=== PATIENT | male | born 1990 | race Caucasian/White ===

== ENCOUNTER → 2017-07-04 | Outpatient (CLI) | payer OTHER ==
--- NOTE | 2017-07-04 13:46 | REP ---
THORACIC SPINE: AP and lateral views of the thoracic spine are performed with four total views obtained. There is no evidence of compression fracture or malalignment. There is normal thoracic kyphosis. Disc spaces appear relatively well preserved. The posterior elements are intact. IMPRESSION: No evidence of compression fracture or significant arthritic change. Signed by Theron Mcdermott MD 07/04/2017 04:46 P
== END ==
LOC: M WUC 12:34
PROVIDERS: ATTEND Physician Assistant
DX: S23.3XXA Sprain of ligaments of thoracic spine, initial encounter (principal); X58.XXXA Exposure to other specified factors, initial encounter; Y93.9 Activity, unspecified; Y92.9 Unspecified place or not applicable; Y99.8 Other external cause status

== ENCOUNTER 2019-07-29 06:08 | Emergency (ER) | payer OTHER, SELFPAY ==
[~2019-07-29] VITALS: Ht 175.3 cm; Wt 127.3 kg
[2019-07-29] MEDS ORDERED: [UNRECOGNIZED DRUG - OTHER] (06:14)
[2019-07-29] MEDS ORDERED: CLIN150C14 PO (06:23)
[2019-07-29] MEDS ORDERED: IBUP80TA PO (06:23)
[2019-07-29] MEDS ORDERED: ACET-839 PO (06:23)
[2019-07-29] MEDS ORDERED: KETOROLAC 60 MG/2 ML VIAL (J1885) IM ONE (06:45)
[2019-07-29 07:01] LABS: BASO # 0.1 10^3/uL (0.0-0.2); BASO % 0.5 % (0.0-1.0); EOS # 0.1 10^3/uL (0.0-0.5); EOS % 1.2 % (0.0-3.0); HEMATOCRIT 45.3 % (42.0-52.0); HEMOGLOBIN 15.5 g/dl (13.5-17.5); LYMPH % 20.2 % (24.0-44.0); MEAN CORPUSCULAR HEMOGLOBIN 29.9 pg (27.0-33.0); MEAN CORPUSCULAR HGB CONC 34.2 g/dl (32.0-36.5); MEAN CORPUSCULAR VOLUME 87.5 fl (80.0-96.0); MONO # 0.7 10^3/uL (0.0-0.8); MONO % 6.9 % (0.0-5.0); NEUTROPHILS # 6.9 10^3/uL (1.5-8.5); NEUTROPHILS % 70.9 % (36.0-66.0); PLATELET COUNT, AUTOMATED 376 10^3/uL (150-450); RED BLOOD COUNT 5.18 10^6/uL (4.30-6.10); WHITE BLOOD COUNT 9.8 10^3/uL (4.0-10.0)
[2019-07-29] MEDS ORDERED: PENI500T PO (07:40)
[2019-07-29] MEDS ORDERED: KETO10TAB PO (07:40)
[2019-07-29 07:57] VITALS: BP 138/92
== END 2019-07-29 07:59 | disposition home or self-care (01) ==
LOC: M ED 06:08
DX: K08.89 Other specified disorders of teeth and supporting structures (principal); K04.7 Periapical abscess without sinus
CPT/HCPCS: 80047; 85025; 96372; 99283; J1885

== ENCOUNTER 2020-09-18 18:46 | Emergency (ER) | payer OTHER, SELFPAY ==
[~2020-09-18] VITALS: Ht 175.3 cm; Wt 134.8 kg
[~2020-09-18 18:46] MED LIST: ACET-839 PO; CLIN150C14 PO; IBUP80TA PO; KETO10TAB PO; PENI500T PO; [UNRECOGNIZED DRUG - OTHER]
[2020-09-18] MEDS ORDERED: NAPR220C14 PO (18:52)
[2020-09-18] MEDS ORDERED: KETOROLAC 60MG 2ML VIAL IM ONE (19:30)
[2020-09-18] MEDS ORDERED: diazePAM 10 MG TAB PO ONE (19:30)
[2020-09-18] MEDS ORDERED: LIDOCAINE 5% (LIDODERM) PATCH TD ONE (19:30)
[2020-09-18] MEDS ORDERED: ROBA750T4 PO (19:57)
[2020-09-18] MEDS ORDERED: ASPE4PAD TOP (19:57)
[2020-09-18] MEDS ORDERED: NAPR-837 PO (19:57)
[2020-09-18 20:11] VITALS: BP 134/82
[2020-09-18] MEDS ORDERED: **NOTE PATIENT COMMENT** MISC XX SCH (21:00)
== END 2020-09-18 20:10 | disposition home or self-care (01) ==
LOC: M ED 18:46
DX: S33.5XXA Sprain of ligaments of lumbar spine, initial encounter (principal); X50.0XXA Overexertion from strenuous movement or load, initial encounter; Y92.89 Other specified places as the place of occurrence of the external cause; Y93.9 Activity, unspecified; Y99.0 Civilian activity done for income or pay
CPT/HCPCS: 99283; J1885

== ENCOUNTER 2021-08-27 12:11 | Emergency (ER) | payer OTHER, SELFPAY ==
[~2021-08-27] VITALS: Ht 175.3 cm; Wt 126.8 kg
[~2021-08-27 12:11] MED LIST changes: +ASPE4PAD TOP; -CLIN150C14 PO; +CLIN150C17 PO; +NAPR-837 PO; +NAPR220C14 PO; +ROBA750T4 PO
[2021-08-27 15:49] LABS: RSV AMPLIFICATION NEGATIVE (NEGATIVE)
[2021-08-27 16:06] VITALS: BP 143/97
== END 2021-08-27 16:45 | disposition home or self-care (01) ==
LOC: M ED 12:11
DX: U07.1 COVID-19 (principal); R50.9 Fever, unspecified; R05.9 Cough, unspecified; R06.02 Shortness of breath; Z79.899 Other long term (current) drug therapy

== ENCOUNTER 2021-09-02 09:51 | Inpatient (IN) | payer OTHER, SELFPAY ==
[~2021-09-02] VITALS: Ht 170.2 cm; Wt 124.5 kg
--- OUTSIDE RECORDS SUMMARY | 2021-09-02 10:03 | CCD ---
Author Author [facility] Organization [facility] Address Unknown Phone Unavailable Support Name Relationship Address Phone Parvin Will Sun Next Of Kin Unknown Unavailable TOMEKA DAVIS Next Of Kin [address] [address] Alyssa Medina DDS Next Of Kin [address] [place], [place] [id number] [employer] Next Of Kin [address] [place] [address] ELFEGO MG Next Of Kin [address] [place] [address] TOMEKA DAVIS ECON [address] [address] Unavailable Re-disclosure Warning The records that you are about to access may contain information from federally-assisted alcohol or drug abuse programs. If such information is present, then the following federally mandated warning applies: This information has been disclosed to you from records protected by federal confidentiality rules (42 CFR part 2). The federal rules prohibit you from making any further disclosure of this information unless further disclosure is expressly permitted by the written consent of the person to whom it pertains or as otherwise permitted by 42 CFR part 2. A general authorization for the release of medical or other information is NOT sufficient for this purpose. The Federal rules restrict any use of the information to criminally investigate or prosecute any alcohol or drug abuse patient.The records that you are about to access may contain highly sensitive health information, the redisclosure of which is protected by Article 27-F of the [facility] Public Health law. If you continue you may have access to information: Regarding HIV / AIDS; Provided by facilities licensed or operated by the [facility] Office of Mental Health; or Provided by the [facility] Office for People With Developmental Disabilities. If such information is present, then the following [facility] mandated warning applies: This information has been disclosed to you from confidential records which are protected by state law. State law prohibits you from making any further disclosure of this information without the specific written consent of the person to whom it pertains, or as otherwise permitted by law. Any unauthorized further disclosure in violation of state law may result in a fine or intermediate sentence or both. A general authorization for the release of medical or other information is NOT sufficient authorization for further disc losure. Family History Family Member Name Family Member Gender Family Member Status Date o f Status Description Data Source(s) Unknown Unknown Problem MEDENT ([facility]) Encounters Encounter Providers Location Date Indications Data Source(s ) TeleMedicine Phone E/M by Esa 5-10 Min [address] [place] [address] 08/29/2021 12:00:00 AM EDT eCW1 ([facility]) Medications No Information Insurance Providers Payer name Policy type / Coverage type Policy ID Covered constitution party ID Covered constitution party's relationship to cartagena Policy [place] Plan Information [employer] Compensation [id number] Self [id number] Sliding Fee Scale P [id number] S [id number] [facility] [id number] SP [id number] [employer] [id number] SP [id number] Sliding Fee Scale P [id number] S [id number] Self Pay P none S none [facility] [id number] SP [id number] Self Pay P UNAVAILABLE S UNAVAILA BLE [employer] [id number] SP [id number] [employer] O [id number] O [id number] O UNAVAILABLE UNA[employer]ILA BLE [employer] O [id number] O [id number] [facility] Health Maintenance Organization [place] [id number] Self [id number] [facility] Health Maintenance Organization [place] [id number] Self [facility] [id number] SP [id number] SELF PAY UNAVAILABLE SP UNAVAILA BLE X CHANGING [id number] SP [id number] [employer] [id number] SP [id number] [employer] CLAIMS [id number] SP [id number] OTHER1 OTHER WORKERS COMPENSATION [id number] SP [id number] SELF PAY ONLY [id number] SP [id number] Problems, Conditions, and Diagnoses No Information Surgeries/Procedures No Information Results ID Date Data Source [id number] 08/27/2021 02:54:00 PM EDT [facility] Name Value Range Interpretation Code Description Data Nan rce(s) Supporting Document(s) SARS coronavirus 2 RNA [Presence] in Res piratory specimen by JONN with probe detection POSITIVE [facility] This lab was ordered by [facility] a nd reported by [facility]. Procedure Social History No Information
--- OUTSIDE RECORDS SUMMARY | 2021-09-02 10:03 | CCD ---
Author Author [facility] Organization [facility] Address Unknown Phone Unavailable Care Team Providers Care Industrial Engineering Analyst Name Role Phone Jaya Nolasco Unavailable PROBLEMS No Information ALLERGIES No Information ENCOUNTERS from 1990 to 2021-08-31 Encounter Location Date Provider Diagnosis [facility] Luis JONES [phone] [place] [address] Aug, Jaya Nolasco COVID-19 U07.1 IMMUNIZATIONS No Information SOCIAL HISTORY Sex Assigned At : Social History Observation Description Sex Assigned At Unknown REASON FOR REFERRAL No Information VITAL SIGNS No information MEDICATIONS No Information PROCEDURES No Information RESULTS No Results REASON FOR VISIT COVID F/U; telemedicine visit Goals Section No Information Health Concerns No Information MEDICAL EQUIPMENT No Information MENTAL STATUS No Information FUNCTIONAL STATUS No Information ASSESSMENTS Encounter Date Diagnosis Assessment Notes Treatment Notes Treatm ent Clinical Notes Aug, COVID-19 (ICD-10 - U07.1) Symptom onset: 6 days. Positive test: 3 days You have been infected with coronavirus commonly known as Covid-19. Unfortunately, antibiotics do not help with viral infections. They are usually benign and self-limited infections, so treatment is based on symptomatic relief. Rest and drink clear fluids throughout the day. You may use humidification and saline irrigation to help with the congestion. You may also take motrin or tylenol as needed for pain or fever. You are considered to be contagious at this time. Please quarantine at home as directed. You likely will be contacted by public health who give you further direction viral infections sometimes may last 10-14 days before resolving completely. However, if symptoms are worsening especially if you develop chest pain or difficulty breathing; please be reevaluated as soon as possible. If you do not have any cardiac or blood pressure problems you may also consider using qnvm-snr-rwqwfce decongestant (i.e. Sudafed) medication as needed. Please continue to monitor home oxygen levels. If they are consistently below 90% or if you develop worsening shortness of breath and/or chest pain, please go directly to the emergency room for further evaluation and management. PLAN OF TREATMENT Treatment Notes Assessment Notes Clinical Notes COVID-19 Symptom onset: 6 days. Posi tive test: 3 daysYou have been infected with coronavirus commonly known as Covid-19. Unfortunately, antibiotics do not help with viral infections. They are usually benign and self-limited infections, so treatment is based on symptomatic relief. Rest and drink clear fluids throughout the day. You may use humidification and saline irrigation to help with the congestion. You may also take motrin or tylenol as needed for pain or fever. You are considered to be contagious at this time. Please quarantine at home as directed. You likely will be contacted by public health who give you further direction viral infections sometimes may last 10-14 days before resolving completely. However, if symptoms are worsening especially if you develop chest pain or difficulty breathing; please be reevaluated as soon as possible. If you do not have any cardiac or blood pressure problems you may also consider using vocw-pnc-ytgpdgz decongestant (i.e. Sudafed) medication as needed.Please continue to monitor home oxygen levels. If they are consistently below 90% or if you develop worsening shortness of breath and/or chest pain, please go directly to the emergency room for further evaluation and management. Next Appt Details Patient is low risk and doing well. Fol low-up as needed Reason:
--- OUTSIDE RECORDS SUMMARY | 2021-09-02 11:31 | CCD ---
Author Author [facility] Organization [facility] Address Unknown Phone Unavailable Support Name Relationship Address Phone Parvin Will Sun Next Of Kin Unknown Unavailable TOMEKA DAVIS Next Of Kin [address] [address] Alyssa Medina DDS Next Of Kin [address] [place], [place] [id number] [employer] Next Of Kin [address] [place] [address] ELFEGO MG Next Of Kin [address] [place] [address] TOMEKA DAVIS ECON [address] [address] Unavailable Re-disclosure Warning The records that you [...] is protected by Article 27-F of the [facility] Public Health law. If you continue you may have access to information: Regarding HIV / AIDS; Provided by facilities licensed or operated by the [facility] Office of Mental Health; or Provided by the [facility] Office for People With Developmental Disabilities. If such information is present, then the following [facility] mandated warning applies: This information has [...] law may result in a fine or group home sentence or both. A general authorization for [...] Phone E/M by Esa 5-10 Min [address] [place] [address] 08/29/2021 12:00:00 AM EDT eCW1 ([facility]) Medications No Information Insurance Providers Payer name Policy type / Coverage type Policy ID Covered democrat ID Covered democrat's relationship to cartagena Policy [place] Plan Information [employer] Compensation [id number] Self [id number] Sliding Fee Scale P [id number] S [id number] [facility] [id number] SP [id number] [employer] [id number] SP [id number] Sliding Fee Scale P [id number] S [id number] Self Pay P none S none [facility] [id number] SP [id number] Self Pay P UNAVAILABLE S UNAVAILA BLE [employer] [id number] SP [id number] [employer] O [id number] O [id number] O UNAVAILABLE UNAVAILA BLE [employer] O [id number] O [id number] [facility] Health Maintenance Organization ([facility] [id number] Self [id number] [facility] Health Maintenance Organization ([facility] [id number] Self [facility] [id number] SP [id number] SELF PAY UNAVAILABLE SP UNAVAILA BLE X CHANGING [id number] SP [id number] [employer] [id number] SP [id number] [employer] CLAIMS [id number] SP [id number] SELF PAY ONLY [id number] SP [id number] OTHER WORKERS COMPENSATION [id number] SP [id number] Problems, Conditions, and Diagnoses No Information Surgeries/Procedures No Information Results ID Date Data Source [id number] 08/27/2021 02:54:00 PM EDT [facility] Name Value Range Interpretation Code Description Data Nan rce(s) Supporting Document(s) SARS coronavirus 2 RNA [Presence] in Res piratory specimen by JONN with probe detection POSITIVE [facility] This lab was ordered by [facility] a nd reported by [facility]. Procedure Social History No Information
[2021-09-02] MEDS ORDERED: NS 1,000 ML IV ONE (11:40)
[2021-09-02] MEDS ORDERED: diphenhydrAMINE 50MG/ML VIAL (J1200) IV ONE (12:00)
[2021-09-02] MEDS ORDERED: guaiFENesin DM LIQ 10ML UD PO ONE (12:00)
[2021-09-02] MEDS ORDERED: ACETAMINOPHEN 325 MG TAB PO ONE (12:00)
[2021-09-02 12:18] LABS: BASO % 0.4 % (0.0-1.0); EOS % 0.4 % (0.0-3.0); HEMATOCRIT 43.5 % (42.0-52.0); HEMOGLOBIN 15.2 g/dl (13.5-17.5); LYMPH # 1.2 10^3/uL (1.5-5.0); LYMPH % 15.8 % (24.0-44.0); MEAN CORPUSCULAR HEMOGLOBIN 29.3 pg (27.0-33.0); MEAN CORPUSCULAR HGB CONC 34.9 g/dl (32.0-36.5); MONO # 0.4 10^3/uL (0.0-0.8); MONO % 5.7 % (2.0-8.0); NEUTROPHILS # 5.8 10^3/uL (1.5-8.5); NEUTROPHILS % 77.3 % (36.0-66.0); PLATELET COUNT, AUTOMATED 305 10^3/uL (150-450); RED BLOOD COUNT 5.18 10^6/uL (4.30-6.10); WHITE BLOOD COUNT 7.5 10^3/uL (4.0-10.0)
--- NOTE | 2021-09-02 12:29 | REP ---
INDICATION: Coronavirus workup COMPARISON: 10/15/2015 TECHNIQUE: Portable AP view of the chest FINDINGS: Mediastinum and cardiac silhouette are normal. Moderate patchy bilateral opacities are consistent with COVID-19 pulmonary disease. No effusion. No pneumothorax. Skeletal structures are intact. IMPRESSION: Patchy bilateral opacities consistent with COVID-19 pulmonary disease. <Electronically signed by Vikram Temple > 09/02/21 [id number]
--- OUTSIDE RECORDS SUMMARY | 2021-09-02 12:42 | CCD ---
Author Author [facility] Organization [facility] Address Unknown Phone Unavailable Support Name Relationship Address Phone Parvin Will Sun Next Of Kin Unknown Unavailable TOMEKA DAVIS Next Of Kin [address] [address] Alyssa Medina DDS Next Of Kin [address] [place], [place] [phone] [employer] Next Of Kin [address] [place] [address] ELFEGO MG Next Of Kin [address] [address] [place] [address] TOMEKA DAVIS ECON [address] [address] Unavailable Re-disclosure Warning The records that you [...] is protected by Article 27-F of the [facility] Public Health law. If you continue you may have access to information: Regarding HIV / AIDS; Provided by facilities licensed or operated by the [facility] Office of Mental Health; or Provided by the [facility] Office for People With Developmental Disabilities. If such information is present, then the following [facility] mandated warning applies: This information has [...] law may result in a fine or detention sentence or both. A general authorization for [...] TeleMedicine Phone E/M by Esa 5-10 Min [address] [place] [address] 08/29/2021 12:00:00 AM EDT eCW1 ([facility]) Medications No Information Insurance Providers Payer name Policy type / Coverage type Policy ID Covered alliance party ID Covered alliance party's relationship to cartagena Policy [place] Plan Information [employer] [id number] Self [id number] Sliding Fee Scale P [id number] S [id number] [facility] [id number] SP [id number] [employer] [id number] SP [id number] Sliding Fee Scale P [id number] S [id number] Self Pay P none S none [facility] [id number] SP [id number] Self Pay P UNAVAILABLE S UNAVAILA BLE [employer] [id number] SP [id number] [employer] O [id number] O [id number] O UNAVAILABLE UNAVAILA BLE [employer] O [id number] O [id number] [facility] Health Maintenance Organization ([facility]) [id number] Self [id number] [facility] Health Maintenance Organization ([facility]) [id number] Self [facility] [id number] SP [id number] SELF PAY UNAVAILABLE SP UNAVAILA BLE X CHANGING [id number] SP [id number] [employer] [id number] SP [id number] [employer] CLAIMS [id number] SP [id number] SELF PAY ONLY [id number] SP [id number] OTHER WORKERS COMPENSATION [id number] SP [id number] Problems, Conditions, and Diagnoses No Information Surgeries/Procedures No Information Results ID Date Data Source [id number] 08/27/2021 02:54:00 PM EDT [facility] Name Value Range Interpretation Code Description Data Nan rce(s) Supporting Document(s) SARS coronavirus 2 RNA [Presence] in Res piratory specimen by JONN with probe detection POSITIVE [facility] This lab was ordered by [facility] a nd reported by [facility]. Procedure Social History No Information
[2021-09-02 12:44] LABS: ALBUMIN 3.4 GM/DL (3.2-5.2); ALT/SGPT 134 U/L (12-78); BILIRUBIN,TOTAL 0.5 MG/DL (0.2-1.0); BLOOD UREA NITROGEN 7 MG/DL (7-18); CALCIUM LEVEL 8.3 MG/DL (8.5-10.1); CARBON DIOXIDE LEVEL 25 MEQ/L (21-32); CHLORIDE LEVEL 99 MEQ/L (98-107); CK-MB VALUE MASS < 1.0 NG/ML (<3.6); CPK CREATINE PHOSPHOKINASE 111 U/L (39-308); CREATININE FOR GFR 0.82 MG/DL (0.70-1.30); FERRITIN 898 NG/ML (26-388); GLOMERULAR FILTRATION RATE > 60.0 (>60); GLUCOSE, FASTING 258 MG/DL (70-100); LDH LACTATE DEHYDROGENASE 410 U/L (87-241); MAGNESIUM LEVEL 1.7 MG/DL (1.8-2.4); POTASSIUM SERUM 3.8 MEQ/L (3.5-5.1); SODIUM LEVEL 132 MEQ/L (136-145); TOTAL PROTEIN 7.5 GM/DL (6.4-8.2); TROPONIN I < 0.02 NG/ML (< 0.10)
[2021-09-02] MEDS ORDERED: HOME MED LIST COMPLETE! XX SCH (12:45)
[2021-09-02 12:54] LABS: ABG BASE EXCESS -1.1 (-2.0-2.0); ABG HCO3 21.2 MEQ/L (22.0-26.0); ABG O2 SATURATION 93.6 % (95.0-99.0); ABG PARTIAL PRESSURE CO2 29.4 mmHg (35.0-45.0); ABG PARTIAL PRESSURE O2 65.7 mmHg (75.0-100.0); ABG STANDARD HCO3 23.4 MEQ/L (22.0-26.0); ABG TOTAL CO2 22.1 MEQ/L (22.0-29.0); ABG pH (ARTERIAL) 7.476 UNITS (7.350-7.450)
[2021-09-02 12:55] LABS: INR 0.99; PROTHROMBIN TIME 13.5 SECONDS (12.7-14.5)
[2021-09-02 12:56] LABS: PARTIAL THROMBOPLASTIN TIME 30.3 SECONDS (25.9-37.0)
[2021-09-02 12:59] LABS: D-DIMER QUANT 717.58 ng/ml (<500)
[2021-09-02] MEDS ORDERED: LEVALBUTEROL HFA 45MCG/ACT 15 GM INHALER INH ONE (13:15)
[2021-09-02] MEDS ORDERED: REMDESIVIR 200 MG in NS 250 ML IV ONE (15:00)
[2021-09-02] MEDS: dexameTHASONE 4 MG/ML 1ML VIAL (J1100 PER 1MG) IV SCH (15:11)
[2021-09-02] MEDS: ENOXAPARIN 40MG/0.4ML SYRINGE (J1650 PER 10MG) SC SCH (15:11)
[2021-09-02] MEDS: ASPIRIN 81MG ENTERIC TABLET PO SCH (15:11)
[2021-09-02] MEDS ORDERED: SODIUM CHLORIDE 0.9% INJ 10 ML SYR IV ONE (17:00)
--- NOTE | 2021-09-02 19:52 | ECGEPIP ---
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
[2021-09-02 21:10] VITALS: BP 141/80; O2SAT 95
[2021-09-03] VITALS (10 sets, daily range): BP systolic 130–139; BP diastolic 75–85; O2SAT 88–94
--- NOTE | 2021-09-03 06:43 | HPE ---
HISTORY AND PHYSICAL DATE OF ADMISSION: 09/02/2021 CHIEF COMPLAINT: Muscle aches, cough and shortness of breath. HISTORY OF PRESENT ILLNESS: This is a 31-year-old male with no past medical history who presents to the Emergency Room with 2-3 day history of worsening shortness of breath, the symptoms however started two Fridays ago when he found that he was coughing and having chills at night. He describes the cough as dry without sputum production. He had fevers of 101.9. He was exposed to a coworker who tested positive for Coronavirus. He then developed over the past 2-3 days a decrease in oral intake, nausea, vomiting, and generalized headache and decrease in appetite. Patient has no abdominal pain. Denies any changes in vision, palpitations, lightheadedness, chest pain or pressure. Despite taking Tylenol and Ibuprofen, patient continued to have on and off fevers and chills at night as well as nausea and vomiting with worsening shortness of breath. In the Emergency Room, the patient was found to be tachycardic, saturating 92% on room air but chest x-ray showed bilateral infiltrates and positive for Coronavirus. The Hospitalist was called to admit the patient for Coronavirus pneumonia. PAST MEDICAL HISTORY: None. PAST SURGICAL HISTORY: None. ALLERGIES: LETY inhibitors. HOME MEDICATIONS: 1. Tylenol. 2. Ibuprofen as needed. SOCIAL HISTORY: Previous smoker, a pack a day for about five to six years, quit about four years ago. No alcohol or recreational drug use. He works at a [employer]. FAMILY HISTORY: Mother with unknown medical problems. Father unknown. REVIEW OF SYSTEMS: Per HPI. A 12 point system is otherwise negative. PHYSICAL EXAMINATION: VITAL SIGNS: Temperature is 96.9, pulse is 113, sinus, respiratory is 24, blood pressure is 138/84, 92% on room air. GENERAL: Awake, alert and oriented to person, place and time, answering questions appropriately, in no distress, cyanosis, pallor or icterus. HEENT: Moist mucous membranes. No cervical lymphadenopathy, thyromegaly or jugular venous distention. No stridor. LUNGS: Diminished with fine crepitations bilaterally. HEART: S1 and S2, sinus tachycardia. ABDOMEN: Obese, soft, nontender and nondistended. EXTREMITIES: No cyanosis, clubbing or pitting edema. LABORATORY DATA: White count is 7.5, hemoglobin 15, hematocrit 43, platelet count is 305,000, 77% neutrophils, sodium is 132, potassium is 3.8, chloride is 99, bicarbonate is 25, BUN 7, creatinine is 0.8, glucose 258. Lactic acid of 1.7. Magnesium of 1.7. Calcium is 8.3. Ferritin is 898. T-bilirubin is 0.5. AST is 75, ALT is 134, alkaline phosphatase is 85. LDH is 410, CRP of 18. D-Dimer 717, fibrinogen 755, INR 0.99. Two sets of blood cultures are pending. Chest x-ray on 09/02/2021: Patchy bilateral opacities consistent with COVID-19 pulmonary disease. ASSESSMENT AND PLAN: This is a 31-year-old male with no past medical history aside from obesity with a BMI of 40.5% with a three day history of worsening shortness of breath but symptoms that started since two Peter's ago with a dry cough and chills at night. Patient has developed nausea and vomiting for the past two to three days, decreased oral intake prompting him to come to the ER. Chest x-ray showed bilateral patchy infiltrates consistent with Coronavirus infection. IMPRESSION: 1. Coronavirus pneumonia. Patient is currently not hypoxic, saturating well on room air at 92 to 94%. Patient will be treated with Remdesivir, IV Decadron, aspirin and Lovenox. Awaiting procalcitonin level. If greater than 0.5, patient will be given antibiotics for a secondary bacterial infection, supplemental oxygen to keep O2 saturations at 90% or higher. DISPOSITION: Two to three days. MTDD
[2021-09-03 07:13] LABS: HEMATOCRIT 41.7 % (42.0-52.0); HEMOGLOBIN 14.3 g/dl (13.5-17.5); MEAN CORPUSCULAR HEMOGLOBIN 29.3 pg (27.0-33.0); MEAN CORPUSCULAR HGB CONC 34.3 g/dl (32.0-36.5); MEAN CORPUSCULAR VOLUME 85.5 fl (80.0-96.0); PLATELET COUNT, AUTOMATED 314 10^3/uL (150-450); RED BLOOD COUNT 4.88 10^6/uL (4.30-6.10)
[2021-09-03 07:40] LABS: LYMPHOCYTES 23 % (16-44); MONOCYTES 5 % (0-5); NEUTROPHILS 72 % (28-66)
[2021-09-03 07:41] LABS: PLATELET ESTIMATE NORMAL (NORMAL)
[2021-09-03 07:58] LABS: ALBUMIN 3.1 GM/DL (3.2-5.2); ALT/SGPT 96 U/L (12-78); BILIRUBIN,DIRECT 0.1 MG/DL (0.0-0.2); BILIRUBIN,TOTAL 0.4 MG/DL (0.2-1.0); BLOOD UREA NITROGEN 11 MG/DL (7-18); CARBON DIOXIDE LEVEL 28 MEQ/L (21-32); CHLORIDE LEVEL 101 MEQ/L (98-107); CREATININE FOR GFR 0.87 MG/DL (0.70-1.30); GLOMERULAR FILTRATION RATE > 60.0 (>60); GLUCOSE, FASTING 294 MG/DL (70-100); MAGNESIUM LEVEL 2.1 MG/DL (1.8-2.4); POTASSIUM SERUM 3.6 MEQ/L (3.5-5.1); SODIUM LEVEL 134 MEQ/L (136-145)
[2021-09-03] MEDS: dexameTHASONE 4 MG/ML 1ML VIAL (J1100 PER 1MG) IV SCH (08:45)
[2021-09-03] MEDS: ASPIRIN 81MG ENTERIC TABLET PO SCH (08:45)
[2021-09-03] MEDS: ENOXAPARIN 40MG/0.4ML SYRINGE (J1650 PER 10MG) SC SCH (08:45)
--- NOTE | 2021-09-03 12:13 | IPN ---
PROGRESS NOTE DATE: 09/03/2021 SUBJECTIVE: Patient says that he is still slightly short of breath, but improved from yesterday. He still has a productive cough of white sputum without fever or chills. Some dyspnea on exertion; when he ambulated he desaturated to 88% despite 2 liters of oxygen from the bed to the bathroom back, recovered within a minute. OBJECTIVE: Vital signs: Temperature 97.4, pulse 74, respiratory rate 18, blood pressure 130/75, 94% on 3 liters nasal cannula. General: Awake, alert, oriented to person, place and time, answering questions appropriately, no use of respiratory accessory muscles. Neck: No JVD, no thyromegaly, no cervical lymphadenopathy. Lungs: Diminished, but clear to auscultation, no wheezing or rales. Heart: S1 and S2 sinus rhythm. Abdomen: Soft, nontender, nondistended, positive bowel sounds, no guarding or rebound. Extremities: No cyanosis, clubbing or pitting edema. LABORATORY DATA/IMAGING STUDIES/MICROBIOLOGY: Reviewed. ASSESSMENT: 31-year-old with no past medical history aside from obesity, BMI of 43, with a 3 day history of worsening shortness of breath, dry cough and chills at night developed nausea, vomiting, diarrhea, found to have patchy infiltrates on chest x-ray, admitted for Coronavirus pneumonia. IMPRESSIONS/PLAN: 1. Coronavirus pneumonia currently hypoxic, desaturating to 80% despite 2 liters nasal cannula with ambulation: On day number 2 of remdesivir, Decadron, aspirin and Lovenox, oxygen to keep saturations at 90%. Procalcitonin is still pending. No empiric antibiotics have been given. Continue with full supportive care. 2. Obesity, BMI of 43: Weight loss as outpatient. [facility]
[2021-09-03] MEDS: REMDESIVIR 100 MG in NS 250 ML IV SCH (15:14)
[2021-09-03] MEDS: SODIUM CHLORIDE 0.9% INJ 10 ML SYR IV SCH (15:14)
[2021-09-04] VITALS (8 sets, daily range): BP systolic 126–138; BP diastolic 72–78; O2SAT 88–97
[2021-09-04 07:20] LABS: HEMATOCRIT 41.4 % (42.0-52.0); HEMOGLOBIN 14.1 g/dl (13.5-17.5); MEAN CORPUSCULAR HEMOGLOBIN 28.9 pg (27.0-33.0); MEAN CORPUSCULAR HGB CONC 34.1 g/dl (32.0-36.5); MEAN CORPUSCULAR VOLUME 84.8 fl (80.0-96.0); PLATELET COUNT, AUTOMATED 410 10^3/uL (150-450); RED BLOOD COUNT 4.88 10^6/uL (4.30-6.10); WHITE BLOOD COUNT 8.4 10^3/uL (4.0-10.0)
[2021-09-04 07:29] LABS: INR 1.05; PROTHROMBIN TIME 14.1 SECONDS (12.7-14.5)
[2021-09-04 07:30] LABS: PARTIAL THROMBOPLASTIN TIME 28.8 SECONDS (25.9-37.0)
[2021-09-04 07:48] LABS: ALBUMIN 2.9 GM/DL (3.2-5.2); ALT/SGPT 69 U/L (12-78); BILIRUBIN,DIRECT 0.1 MG/DL (0.0-0.2); BILIRUBIN,TOTAL 0.3 MG/DL (0.2-1.0); BLOOD UREA NITROGEN 16 MG/DL (7-18); CALCIUM LEVEL 9.4 MG/DL (8.5-10.1); CARBON DIOXIDE LEVEL 25 MEQ/L (21-32); CHLORIDE LEVEL 101 MEQ/L (98-107); CPK CREATINE PHOSPHOKINASE 60 U/L (39-308); CREATININE FOR GFR 0.77 MG/DL (0.70-1.30); FERRITIN 662 NG/ML (26-388); GLOMERULAR FILTRATION RATE > 60.0 (>60); GLUCOSE, FASTING 349 MG/DL (70-100); LDH LACTATE DEHYDROGENASE 235 U/L (87-241); NT-PRO BNP 153 PG/ML (<125); POTASSIUM SERUM 3.9 MEQ/L (3.5-5.1); SODIUM LEVEL 134 MEQ/L (136-145); TOTAL PROTEIN 7.5 GM/DL (6.4-8.2); TROPONIN I < 0.02 NG/ML (< 0.10)
[2021-09-04 08:21] LABS: ATYPICAL LYMPH 2 % (0-5); LYMPHOCYTES 20 % (16-44); MONOCYTES 6 % (0-5); NEUTROPHILS 72 % (28-66); PLATELET ESTIMATE NORMAL (NORMAL)
[2021-09-04] MEDS: ASPIRIN 81MG ENTERIC TABLET PO SCH (09:04)
[2021-09-04] MEDS: dexameTHASONE 4 MG/ML 1ML VIAL (J1100 PER 1MG) IV SCH (09:04)
[2021-09-04] MEDS: ENOXAPARIN 40MG/0.4ML SYRINGE (J1650 PER 10MG) SC SCH (09:04)
[2021-09-04] MEDS: REMDESIVIR 100 MG in NS 250 ML IV SCH (15:22)
[2021-09-04] MEDS: SODIUM CHLORIDE 0.9% INJ 10 ML SYR IV SCH (15:23)
[2021-09-04 16:10] LABS: MYCOPLASMA PNEUMONIAE IgG 560 U/mL (0-99); MYCOPLASMA PNEUMONIAE IgM <770 U/mL (0-769)
--- NOTE | 2021-09-04 18:10 | IPNPDOC ---
Subjective Date Seen The patient was seen on 09/04/21. Subjective Chief Complaint/HPI Mr. Morgan is a 31-year-old man who is here for hypoxia secondary to Covid pneumonia. Overnight his oxygen requirements increased to 4 L. Otherwise he denies any chest pain or dyspnea. Objective Physical Examination General Exam: Positive: Alert, Cooperative Eye Exam: Negative: Sclera icteric ENT Exam: Positive: Atraumatic Neck Exam: Positive: Supple Chest Exam: Positive: Diminished Heart Exam: Positive: Rate Normal, Regular Rhythm Abdomen Exam: Positive: Normal bowel sounds, Soft; Negative: Tenderness Male Exam: Negative: Edema Neuro Exam: Positive: Normal Speech Psych Exam: Positive: Mental status NL, Mood NL Assessment /Plan Assessment Mr. Morgan is a 31-year-old man who is here for hypoxia secondary to Covid pneumonia. Patient is still hypoxic and requiring 4 L of oxygen. Normally is not on any oxygen. We will continue with steroids and remdesivir Plan/VTE VTE Prophylaxis Ordered?: Yes Plan 1. Covid pneumonia Continue dexamethasone and remdesivir 2. Acute hypoxic respiratory failure Currently requiring 4 L of oxygen. Normally at room air normal 3. Obesity BMI 43 Complicates care 4. DVT prophylaxis Aspirin and Lovenox Disposition: Pending improvement in oxygen status VS, I&O, 24H, [facility] Vital Signs/I&O Vital Signs Date Time Temp Pulse Resp B/P (MAP) Pulse Ox O2 Delivery O2 Flow Rate FiO2 09/04/21 14:00 98.5 79 18 131/78 (95) 93 Nasal Cannula 4.0 I&O- Last 24 Hours up to 6 AM 09/04/21 06:00 Intake Total 360 ml Output Total 3750 ml Balance -3390 ml Laboratory Data 24H LABS Laboratory Tests 2 09/04/21 06:14: Neutrophils (%) (Auto) , Nucleated Red Blood Cells % (auto) 0.0, Neutrophils 72H, Lymphocytes (Manual) 20, Monocytes (Manual) 6H, Atypical Lymphocytes 2, Red Blood Cell Morphology NORMAL, Platelet Estimate NORMAL, Prothrombin Time 14.1H, Prothromb Time International Ratio 1.05, Activated Partial Thromboplast Time 28.8, Fibrinogen 688H, Anion Gap 8, Glomerular Filtration Rate > 60.0, Calcium Level 9.4, Magnesium Level 2.0, Ferritin 662H, Total Bilirubin 0.3, Direct Bilirubin 0.1, Aspartate Amino Transf (AST/SGOT) 18, Alanine Aminotransferase (ALT/SGPT) 69, Alkaline Phosphatase 83, Lactate Dehydrogenase 235, Total Creatine Kinase 60, Troponin I < 0.02, BG-Zxd-C-Type Natriuretic Peptide 153H, Total Protein 7.5, Albumin 2.9L, Albumin/Globulin Ratio 0.6, Procalcitonin 0.29 CBC/BMP Laboratory Tests 09/04/21 06:14 Microbiology Microbiology 09/02/21 Blood Culture - Preliminary, Resulted No Growth after 48 hours. All Specime... 09/02/21 Blood Culture - Preliminary, Resulted No Growth after 48 hours. All Specime... NE BROOKS DO Sep 04, 2021 18:10
[2021-09-05] VITALS: O2SAT 97
[2021-09-05 05:27] VITALS: BP 132/83
[2021-09-05 05:56] LABS: HEMATOCRIT 43.2 % (42.0-52.0); MEAN CORPUSCULAR HEMOGLOBIN 29.4 pg (27.0-33.0); MEAN CORPUSCULAR HGB CONC 34.7 g/dl (32.0-36.5); MEAN CORPUSCULAR VOLUME 84.5 fl (80.0-96.0); PLATELET COUNT, AUTOMATED 476 10^3/uL (150-450); RED BLOOD COUNT 5.11 10^6/uL (4.30-6.10); WHITE BLOOD COUNT 10.9 10^3/uL (4.0-10.0)
[2021-09-05 06:12] LABS: BLOOD UREA NITROGEN 17 MG/DL (7-18); CALCIUM LEVEL 9.4 MG/DL (8.5-10.1); CARBON DIOXIDE LEVEL 28 MEQ/L (21-32); CHLORIDE LEVEL 97 MEQ/L (98-107); CREATININE FOR GFR 0.86 MG/DL (0.70-1.30); GLOMERULAR FILTRATION RATE > 60.0 (>60); GLUCOSE, FASTING 358 MG/DL (70-100); MAGNESIUM LEVEL 1.8 MG/DL (1.8-2.4); POTASSIUM SERUM 3.9 MEQ/L (3.5-5.1); SODIUM LEVEL 132 MEQ/L (136-145)
[2021-09-05 06:31] LABS: ATYPICAL LYMPH 2 % (0-5); LYMPHOCYTES 22 % (16-44); MONOCYTES 1 % (0-5); NEUTROPHILS 75 % (28-66); PLATELET ESTIMATE NORMAL (NORMAL)
[2021-09-05] MEDS ORDERED: SODIUM CHLORIDE NASAL 0.65% SPRAY BTL (OCEAN) PRN (07:10)
[2021-09-05 09:00] VITALS: O2SAT 94
[2021-09-05] MEDS: ASPIRIN 81MG ENTERIC TABLET PO SCH (09:40)
[2021-09-05] MEDS: dexameTHASONE 4 MG/ML 1ML VIAL (J1100 PER 1MG) IV SCH (09:40)
[2021-09-05] MEDS: ENOXAPARIN 40MG/0.4ML SYRINGE (J1650 PER 10MG) SC SCH (09:40)
[2021-09-05] MEDS ORDERED: PRED10TA2 PO (11:55)
--- NOTE | 2021-09-05 22:52 | DS.PDOC ---
Discharge Summary General Date of Admission Sep 02, 2021 at 12:30 Date of Discharge Sep 05, 2021 Discharge Summary PROCEDURES PERFORMED DURING STAY: None ADMITTING DIAGNOSES: 1. COVID Pneumonia 2. Acute hypoxic respiratory failure 3. Obesity DISCHARGE DIAGNOSES: 1. COVID Pneumonia 2. Acute hypoxic respiratory failure 3. Obesity COMPLICATIONS/CHIEF COMPLAINT: Pneumonia Due To Covid-19 Virus. HISTORY OF PRESENT ILLNESS: Copied from admitting attending's H&P " This is a 31-year-old male with no past medical history who presents to the Emergency Room with 2-3 day history of worsening shortness of breath, the symptoms however started two Fridays ago when he found that he was coughing and having chills at night. He describes the cough as dry without sputum production. He had fevers of 101.9. He was exposed to a coworker who tested positive for Coronavirus. He then developed over the past 2-3 days a decrease in oral intake, nausea, vomiting, and generalized headache and decrease in appetite. Patient has no abdominal pain. Denies any changes in vision, palpitations, lightheadedness, chest pain or pressure. Despite taking Tylenol and Ibuprofen, patient continued to have on and off fevers and chills at night as well as nausea and vomiting with worsening shortness of breath. In the Emergency Room, the patient was found to be tachycardic, saturating 92% on room air but chest x-ray showed bilateral infiltrates and positive for Coronavirus. The Hospitalist was called to admit the patient for Coronavirus pneumonia. " HOSPITAL COURSE: Procalcitonin was negative. Patient was afebrile, and there was no leukocytosis. Patient was not put on antibiotics. Patient was on dexamethasone and remdesivir. Initially, oxygen requirements did increase to 4L. Afterwards, patient was rapidly weaned down to room air. Today, patient better. He denied any chest pain or dyspnea. Patient was discharged home today with a steroid taper. Otherwise, patient tells me that his COVID symptoms started on August 24, 2021. Patient will need to be in quarantine for 20 days which will be September 13, 2021. Okay to return to work on September 14, 2021. DISCHARGE MEDICATIONS: Please see below. ALLERGIES: Please see below. PHYSICAL EXAMINATION ON DISCHARGE: VITAL SIGNS: Please see below. GENERAL: Comfortable, in no apparent distress HEENT: Head normocephalic, atraumatic NECK: Supple CARDIOVASCULAR EXAMINATION: Regular rate and rhythm RESPIRATORY EXAMINATION: Lungs clear to auscultation bilaterally ABDOMINAL EXAMINATION: Soft, non-tender, normal bowel sounds EXTREMITIES: No pitting edema bilaterally PSYCHIATRIC EXAMINATION: Normal mood and affect LABORATORY DATA: Please see below. IMAGING: Radiologist interpretation CXR Patchy bilateral opacities consistent with COVID-19 pulmonary disease. PROGNOSIS: Good ACTIVITY: As tolerated. DIET: As tolerated DISCHARGE PLAN: Home DISPOSITION: 01 Home, Self-Care. DISCHARGE INSTRUCTIONS: 1. Follow up with PCP in 1 week 2. Follow instruction of the prednisone taper and take to completion 3. Continue quarantine until September 13, 2021 DISCHARGE CONDITION: Stable Total time spent on discharge planning, discharge summary, and medication recon ciliation: 45 minutes Vital Signs/I&Os Vital Signs Date Time Temp Pulse Resp B/P (MAP) Pulse Ox O2 Delivery O2 Flow Rate FiO2 09/05/21 11:13 94 Room Air 09/05/21 05:27 97.0 64 18 132/83 (99) 2.0 I&O- Last 24 Hours up to 6 AM 09/05/21 06:00 Intake Total 1500 ml Output Total 4075 ml Balance -2575 ml Laboratory Data Labs 24H Laboratory Tests 2 09/05/21 05:35: Neutrophils (%) (Auto) , Nucleated Red Blood Cells % (auto) 0.0, Neutrophils 75H, Lymphocytes (Manual) 22, Monocytes (Manual) 1, Atypical Lymphocytes 2, Red Blood Cell Morphology NORMAL, Platelet Estimate NORMAL, Anion Gap 7L, Glomerular Filtration Rate > 60.0, Calcium Level 9.4, Magnesium Level 1.8 CBC/BMP Laboratory Tests 09/05/21 05:35 Microbiology Microbiology 09/02/21 Blood Culture - Preliminary, Resulted No Growth after 72 hours. All specime... 09/02/21 Blood Culture - Preliminary, Resulted No Growth after 72 hours. All specime... Discharge Medications Scheduled Prednisone (Prednisone) 10 Mg Tablet, 10 MG PO TAPER Take 4 tabs daily x 3 days, then 3 tabs daily x 3 days, then 2 tabs daily x 3 days, then 1 tab daily x 3 days and stop Allergies Coded Allergies: LETY Inhibitors (Verified Adverse Reaction, Severe, LISINOPRIL- ANDIOEDEMA, 09/02/21) NE BROOKS DO Sep 05, 2021 22:52
[2021-09-06 17:07] LABS: BODY FLUID CULTURE Not indicated. (.); LEGIONELLA ANTIGEN URINE Negative (Negative); ORGANISM ID Not indicated. (.); SPECIMEN SOURCE Urine (.); URINE STREP PNEUMONIAE ANTIGEN Negative (Negative)
== END 2021-09-05 14:20 | disposition home or self-care (01) | DRG 137 ==
LOC: M ED 09:51 → M ED INP 12:30 → M 4MAIN 21:06
PROVIDERS: ADMIT General Practice; ATTEND Internal Medicine
PROC: 3E0333Z Introduction of Anti-inflammatory into Peripheral Vein, Percutaneous Approach (ICD-10-PCS; principal; 2021-09-02)
PROC: XW033E5 Introduction of Remdesivir Anti-infective into Peripheral Vein, Percutaneous Approach, New Technology Group 5 (ICD-10-PCS; 2021-09-02)
DX: U07.1 COVID-19 (principal); J96.01 Acute respiratory failure with hypoxia; J12.82 Pneumonia due to coronavirus disease 2019; Z68.41 Body mass index [BMI] 40.0-44.9, adult; E66.9 Obesity, unspecified; Z87.891 Personal history of nicotine dependence; Z88.8 Allergy status to other drugs, medicaments and biological substances